=== PATIENT | female | born 1985 | race Caucasian/White ===

== ENCOUNTER 2017-08-27 06:11 | Inpatient (IN) | payer BC ==
[~2017-08-27] VITALS: Ht 157.5 cm; Wt 92.1 kg
[~2017-08-27 06:11] MED LIST: CHILDREN'S ASPI81 M1 PO; DOCUSATE SODIU100 MG PO; ENDOCET 5-3251 EACH PO; FIORICET WI1 CAPSULE PO; FOLIC ACID0.8 MG PO; IBUPROFEN800 MG PO; PRENATAL TABLE1 EAC3 PO
[2017-08-27 06:41] VITALS: BP 120/74
[2017-08-27] MEDS ORDERED: ZANTAC150 MG PO (07:09)
[2017-08-27] MEDS ORDERED: FIORICET 50-301 EAC1 PO (07:10)
[2017-08-27] MEDS ORDERED: TYLENOL EXTRA500 MG PO (07:11)
[2017-08-27] MEDS ORDERED: PERCOCET 5/31 TABLET PO (07:25)
[2017-08-27] MEDS ORDERED: MOTRIN800 MG PO (07:25)
[2017-08-27 07:35] VITALS: BP 119/73
[2017-08-27 13:12] VITALS: BP 126/69
[2017-08-27 14:10] VITALS: BP 126/70
[2017-08-27 16:23] VITALS: BP 124/61
[2017-08-27 18:00] VITALS: BP 110/58
[2017-08-28 07:15] VITALS: BP 112/64
[2017-08-28 07:38] LABS: BASOPHIL (%) 0 % (0-1); EOSINOPHIL (%) 0.8 % (0-5); HEMATOCRIT 30.4 % (36.0-46.0); HEMOGLOBIN 9.9 G/DL (11.9-15.5); IMMATURE GRANULOCYTE (%) 0.4 % (0.0-0.7); LYMPHOCYTE (%) 14.9 % (15-42); LYMPHOCYTE COUNT 0.8 K/uL (1.0-2.8); MCH 28.7 PG (29.0-34.0); MCHC 32.6 G/DL (30.0-36.0); MCV 88.1 FL (83-99); MONOCYTE (%) 5.7 % (3-12); MONOCYTE COUNT 0.3 K/uL (0-0.8); NEUTROPHIL (%) 78.2 % (45-76); NEUTROPHIL COUNT 4.2 K/uL (1.8-6.4); PLATELET COUNT 106 K/uL (156-360); RBC DIS.WIDTH-CV 15.9 % (11.8-14.6); RBC DIS.WIDTH-SD 50.4 % (39-53); RED BLOOD COUNT 3.45 M/uL (3.80-5.20); WHITE BLOOD COUNT 5.3 K/uL (4.1-10.2)
[2017-08-28 10:47] VITALS: BP 108/69
[2017-08-28 15:01] VITALS: BP 115/60
== END 2017-08-29 18:25 | disposition home or self-care (01) | DRG 766 ==
LOC: 2WEST 06:11 → 2SOUTH 12:35 → 2WEST 08-29 18:25
PROVIDERS: Obstetrics & Gynecology
PROC: 10D00Z1 Extraction of Products of Conception, Low, Open Approach (ICD-10-PCS; principal; 2017-08-27)
DX: O34.211 Maternal care for low transverse scar from previous cesarean delivery (principal); E66.9 Obesity, unspecified; O99.214 Obesity complicating childbirth; Z37.0 Single live birth; Z3A.39 39 weeks gestation of pregnancy; Z68.37 Body mass index [BMI] 37.0-37.9, adult; Z87.891 Personal history of nicotine dependence
CPT/HCPCS: 36415; 85025; 86850; 86900; 86901; J0690; J2274; J2405; J3010; J7120